=== PATIENT | male | born 1990 | race Caucasian/White ===

== ENCOUNTER → 2022-06-07 | Emergency (ER) | payer MEDICAID ==
[~2022-06-07] VITALS: Ht 167.6 cm; Wt 99.8 kg
[2022-06-07 18:41] VITALS: BP 164/105
== END | disposition left against medical advice (07) ==
LOC: ER 18:14
DX: J06.9 Acute upper respiratory infection, unspecified (principal); F17.200 Nicotine dependence, unspecified, uncomplicated; Z88.8 Allergy status to other drugs, medicaments and biological substances
CPT/HCPCS: 99281; J7030